=== PATIENT | female | born 1995 | race Caucasian/White ===

== ENCOUNTER 2017-09-25 22:31 | Emergency (ER) | payer OTHER ==
[2017-09-25] MEDS ORDERED: Acetaminophen/Codeine 30-300mg Tablet ONE (23:08)
[2017-09-25] MEDS ORDERED: Penicillin V Potassium 250 MG TAB ONE (23:09)
== END 2017-09-25 23:15 | disposition home or self-care (01) ==
LOC: SCSER 22:31
DX: K08.89 Other specified disorders of teeth and supporting structures (principal)
CPT/HCPCS: 99282

== ENCOUNTER 2018-02-12 20:29 | Emergency (ER) | payer OTHER ==
[2018-02-12] MEDS ORDERED: Ketorolac Tromethamine 30 MG/ML VIAL ONE ×2 (20:39→22:20)
[2018-02-12] MEDS ORDERED: Ondansetron HCl/PF 4 MG/2 ML Vial ONE (20:42)
[2018-02-12] MEDS ORDERED: Morphine 5 MG/ML SYRINGE ONE (20:46)
[2018-02-12 20:58] LABS: Bilirubin Small (Negative); Blood, Urine Small (Negative); Clarity Clear (Clear); Glucose, Urine (Dipstick) Negative (Negative); Leukocyte Negative (Negative); Nitrite Negative (Negative); Protein, Urine (Dipstick) 30 mg/dL (Neg-Trace); Specific Gravity, Urine 1.025 (1.005-1.030); Urobilinogen 0.2 mg/dL (0.2-1.0); pH, Urine 5.5 (5.0-9.0)
[2018-02-12 20:59] LABS: Pregnancy Test - Urine (BHCG) Negative (Negative)
[2018-02-12 21:00] LABS: Pregu Control Background? CLEAR/WHITE (CLR/WHITE); Pregu Control Bar Appear? YES (CONTROL BAR); Specific Gravity 1.025 (1.002-1.036)
[2018-02-12 21:05] LABS: Bacteria/HPF 1+ HPF (None Seen); Hyaline Casts/LPF 0-3 HYALINE CAST LPF (0-3 Hyaline); RBC/HPF 0-3 HPF (0-3); WBC/HPF 0-3 HPF (0-3)
[2018-02-12 21:11] LABS: ALT (SGPT) 14 U/L (8-55); AST (SGOT) 22 U/L (5-34); Albumin 4.9 g/dL (3.5-5.0); Alkaline Phosphatase 48 U/L (40-150); Anion Gap 17 mmol/L (10-20); BUN (Urea Nitrogen) 7 mg/dL (7.0-18.7); Bilirubin, Total 0.7 mg/dL (0.2-1.2); Calc. Creatinine Clearance 0 mL/min (70-130); Calcium 9.7 mg/dL (7.8-10.44); Carbon Dioxide 21 mmol/L (22-29); Chloride 103 mmol/L (98-107); Estimated GFR-MDRD 89; Globulin 3.8 g/dL (2.4-3.5); Glucose 103 mg/dL (70-105); Potassium 3.5 mmol/L (3.5-5.1); Protein, Total 8.7 g/dL (6.0-8.3); Sodium 137 mmol/L (136-145)
[2018-02-12 21:19] LABS: #Basophils 0.1 thou/uL (0.0-0.2); #Monocytes 0.9 thou/uL (0.11-0.59); #Neutrophils 10.9 thou/uL (1.40-6.50); %Basophils 0.7 % (0.0-1.0); %Eosinophils 0.1 % (0.0-10.0); %Lymphocytes 14.3 % (21.0-51.0); %Monocytes 6.3 % (0.0-10.0); %Neutrophils 78.7 % (42.0-75.0); Hemoglobin 14.4 g/dL (12.0-16.0); Mean Corpuscular HGB CONC 36.9 g/dL (32.0-36.0); Mean Corpuscular Hemoglobin 33.5 pg (27.0-31.0); Mean Corpuscular Volume 90.8 fl (81.0-99.0); Mean Platelet Volume 7.8 fL (7.4-10.4); Platelet Count 218 thou/uL (130-400); RBC Distribution Width 10.7 % (11.5-14.5); White Blood Cell (WBC) Count 13.9 thou/uL (4.8-10.8)
--- NOTE | 2018-02-12 21:33 | RAD ---
PORTABLE AP CHEST X-RAY: 02/12/2018 HISTORY: Mid back pain. Cough. COMPARISON: None available. FINDINGS: The cardiac silhouette and pulmonary vasculature are within normal limits. There is a subtle subcent imeter nodular density in the right mid lung zone, which is of uncertain etiology, especially given t he young age of the patient. The lungs are otherwise clear. The osseous structures are intact. IMPRESSION: Question of a subtle nodular density in the right mid lung zone. Follow-up PA and lateral chest x-ra y is recommended. The lungs are otherwise clear. POS: [facility]
--- NOTE | 2018-02-12 22:01 | RAD ---
PA AND LATERAL CHEST X-RAY: 02/12/2018 HISTORY: Pleuritic chest pain. Right lung nodule. COMPARISON: Portable AP chest x-ray from 02/12/2018 at 2114 hours. FINDINGS: Again, there is suggestion of a pulmonary nodule within the right mid lung zone. The lungs are other medley clear. The cardiac silhouette and pulmonary vasculature are within normal limits. This nodular density is not definitely seen on the lateral projection. Osseous structures are intact. IMPRESSION: Nodular density in the right mid lung zone is again seen. Given the young age of the patient, the ex act etiology is uncertain; however, follow-up chest x-ray is recommended in three months. POS: [facility]
== END 2018-02-12 22:30 | disposition home or self-care (01) ==
LOC: SCSER 20:29
DX: J40 Bronchitis, not specified as acute or chronic (principal); R09.1 Pleurisy
CPT/HCPCS: 71045; 71046; 81003; 81015; 81025; 85025; 96361; 96374; 96375; 96376; J2270; J1885; J2405

== ENCOUNTER 2018-02-16 09:12 | Emergency (ER) | payer OTHER ==
[2018-02-16] MEDS ORDERED: Ketorolac Tromethamine 30 MG/ML VIAL ONE (09:33)
--- NOTE | 2018-02-16 10:14 | RAD ---
CHEST TWO VIEWS: History: Mid back pain. History of productive cough. Chest pain. Comparison: 02-12-18 FINDINGS: Heart size and mediastinum within normal limits. A vague nodular area in the right midlung field, bet ter seen on previous examination, is probably still present although more difficult to visualize on t he current study. The area has been marked with an arrow. Left lung appears clear. No significant bon y findings. IMPRESSION: Vague parenchymal density in the right midlung field appears less prominent than on prior studies. POS: [facility]
== END 2018-02-16 09:52 | disposition home or self-care (01) ==
LOC: SCSER 09:12
DX: J20.9 Acute bronchitis, unspecified (principal)
CPT/HCPCS: 71046; 93005; 94760; 96372; J1885